=== PATIENT | male | born 1980 | race African-American/Black ===

== ENCOUNTER 2023-10-28 22:10 | Emergency (ER) | payer OTHER ==
[~2023-10-28] VITALS: Ht 162.6 cm; Wt 72.6 kg
[2023-10-28 22:16] VITALS: BP_SYST 149; PULSE 98; RESP 16; TEMP 97.1; O2SAT 98
== END 2023-10-28 22:29 ==
LOC: SED 22:10
DX: Z02.83 Encounter for blood-alcohol and blood-drug test (principal)
CPT/HCPCS: 99283